=== PATIENT | female | born 2000 | race American Indian/Alaskan Native ===

== ENCOUNTER 2019-07-22 12:49 | Emergency (ER) | payer SELFPAY ==
[2019-07-22 14:58] LABS: Bilirubin,Urine NEG (Negative); Blood,Urine LG (Negative); Color,Urine Yellow (Yellow); Mucus,Urine 1+ /HPF; Protein,Urine <15 mg/dL mg/dL (Negative); Urobilinogen,Urine < 2.0 mg/dL (<2.0)
[2019-07-22 15:12] LABS: Basophils % (Auto) 0.3 % (0.0-1.8); Eosinophils # (Auto) 0.1 K/mm3 (0.0-0.4); Eosinophils % (Auto) 1.2 % (0.0-4.3); Hematocrit 37.8 % (30.3-42.9); Hemoglobin 12.8 gm/dl (10.1-14.3); Lymphocytes # (Auto) 2.2 K/mm3 (1.2-5.4); Lymphocytes % (Auto) 29.3 % (13.4-35.0); Mean Corpuscular HGB Conc 34 % (30-34); Mean Corpuscular Volume 95 fl (79-97); Monocytes # (Auto) 0.5 K/mm3 (0.0-0.8); Platelet Count 479 K/mm3 (140-440); Red Blood Count 3.99 M/mm3 (3.65-5.03); Red Cell Distribution Width 14.1 % (13.2-15.2)
[2019-07-22 15:20] LABS: BUN/Creatinine Ratio 13; Blood Urea Nitrogen 9 mg/dL (7-17); Calcium 10.4 mg/dL (8.4-10.2); Hemolysis Index 2
--- NOTE | 2019-07-22 15:27 | Emergency Department Report ---
ED Female HPI - General Chief complaint: Vaginal Bleeding Stated complaint: STOMACH,VOMITTING,BLEEDING PAIN Time Seen by Provider: 07/22/19 14:37 Source: patient Mode of arrival: Ambulatory Limitations: No Limitations - History of Present Illness Initial comments: This is a 18-year-old female who presents the ED complaining of vaginal bleeding that started yesterday. Patient states that when she wiped after using the restroom she saw some blood on the tissue. Patient states the bleeding stopped today so she is unsure what is going on. She states last menstrual period was 07/07/2019. Patient also admits a little bit of lower abdominal cramping. Patient denies fever/chills/nausea vomiting/dysuria/contraceptive use. MD Complaint: vaginal bleeding - Related Data Allergies Allergy/AdvReac Type Severity Reaction Status Date / Time No Known Allergies Allergy Unverified 07/22/19 12:52 ED Review of Systems ROS: Stated complaint: STOMACH,VOMITTING,BLEEDING PAIN Other details as noted in HPI Comment: All other systems reviewed and negative ED Past Medical Hx - Past Medical History Previous Medical History?: No - Surgical History Past Surgical History?: No ED Physical Exam - General Limitations: No Limitations General appearance: alert, in no apparent distress - Head Head exam: Present: atraumatic, normocephalic - Eye Eye exam: Present: normal appearance - ENT ENT exam: Present: mucous membranes moist - Neck Neck exam: Present: normal inspection - Respiratory Respiratory exam: Present: normal lung sounds bilaterally. Absent: respiratory distress - Cardiovascular Cardiovascular Exam: Present: regular rate, normal rhythm. Absent: systolic murmur, diastolic murmur, rubs, gallop - GI/Abdominal GI/Abdominal exam: Present: soft, normal bowel sounds. Absent: distended, tenderness, guarding, mass - Extremities Exam Extremities exam: Present: normal inspection - Back Exam Back exam: Present: normal inspection - Neurological Exam Neurological exam: Present: alert, oriented X3 - Psychiatric Psychiatric exam: Present: normal affect, normal mood - Skin Skin exam: Present: warm, dry, intact, normal color. Absent: rash ED Medical Decision Making - Lab Data Result diagrams: 07/22/19 14:50 07/22/19 15:00 Laboratory Last Values WBC 7.6 K/mm3 (4.5-11.0) 07/22/19 14:50 RBC 3.99 M/mm3 (3.65-5.03) 07/22/19 14:50 Hgb 12.8 gm/dl (10.1-14.3) 07/22/19 14:50 Hct 37.8 % (30.3-42.9) 07/22/19 14:50 MCV 95 fl (79-97) 07/22/19 14:50 MCH 32 pg (28-32) 07/22/19 14:50 MCHC 34 % (30-34) 07/22/19 14:50 RDW 14.1 % (13.2-15.2) 07/22/19 14:50 Plt Count 479 K/mm3 (140-440) H 07/22/19 14:50 Lymph % (Auto) 29.3 % (13.4-35.0) 07/22/19 14:50 [place] % (Auto) 7.0 % (0.0-7.3) 07/22/19 14:50 Eos % (Auto) 1.2 % (0.0-4.3) 07/22/19 14:50 Baso % (Auto) 0.3 % (0.0-1.8) 07/22/19 14:50 Lymph # 2.2 K/mm3 (1.2-5.4) 07/22/19 14:50 [place] # 0.5 K/mm3 (0.0-0.8) 07/22/19 14:50 Eos # 0.1 K/mm3 (0.0-0.4) 07/22/19 14:50 Baso # 0.0 K/mm3 (0.0-0.1) 07/22/19 14:50 Seg Neutrophils % 62.2 % (40.0-70.0) 07/22/19 14:50 Seg Neutrophils # 4.7 K/mm3 (1.8-7.7) 07/22/19 14:50 Sodium 139 mmol/L (137-145) 07/22/19 15:00 Potassium 4.9 mmol/L (3.6-5.0) 07/22/19 15:00 Chloride 103.5 mmol/L (98-107) 07/22/19 15:00 Carbon Dioxide 23 mmol/L (22-30) 07/22/19 15:00 Anion Gap 17 mmol/L 07/22/19 15:00 BUN 9 mg/dL (7-17) 07/22/19 15:00 Creatinine 0.7 mg/dL (0.7-1.2) 07/22/19 15:00 Estimated GFR > 60 ml/min 07/22/19 15:00 BUN/Creatinine Ratio 13 % 07/22/19 15:00 Glucose 94 mg/dL (65-100) 07/22/19 15:00 Calcium 10.4 mg/dL (8.4-10.2) H 07/22/19 15:00 HCG, Quant < 2 mIU/mL (0-4) 07/22/19 14:50 Urine Color Yellow (Yellow) 07/22/19 14:36 Urine Turbidity Clear (Clear) 07/22/19 14:36 Urine pH 5.0 (5.0-7.0) 07/22/19 14:36 Ur Specific [place] 1.020 (1.003-1.030) 07/22/19 14:36 Urine Protein <15 mg/dl mg/dL (Negative) 07/22/19 14:36 Urine Glucose (UA) Neg mg/dL (Negative) 07/22/19 14:36 Urine Ketones Neg mg/dL (Negative) 07/22/19 14:36 Urine Blood Lg (Negative) 07/22/19 14:36 Urine Nitrite Neg (Negative) 07/22/19 14:36 Urine Bilirubin Neg (Negative) 07/22/19 14:36 Urine Urobilinogen < 2.0 mg/dL (<2.0) 07/22/19 14:36 Ur Leukocyte Esterase Neg (Negative) 07/22/19 14:36 Urine WBC (Auto) 1.0 /HPF (0.0-6.0) 07/22/19 14:36 Urine RBC (Auto) 10.0 /HPF (0.0-6.0) 07/22/19 14:36 U Epithel Cells (Auto) 1.0 /HPF (0-13.0) 07/22/19 14:36 Urine Mucus 1+ /HPF 07/22/19 14:36 Blood Type O POSITIVE 07/22/19 14:50 - Medical Decision Making This is a 18-year-old female presents with intermenstrual bleeding. All labs are within normal limits, test negative urinalysis negative. I discussed all findings with the patient. Discussed with patient to follow-up with primary care physician. Referrals for NUMEROLOGIST given for patient to follow-up. Vital signs are normal patient is in no acute distress. Critical care attestation.: If time is entered above; I have spent that time in minutes in the direct care of this critically ill patient, excluding procedure time. ED Disposition Clinical Impression: Irregular menstrual bleeding, Intermenstrual spotting Disposition: TO HOME OR SELFCARE Is pt being admited?: No Does the pt Need Aspirin: No Condition: Stable Instructions: Dysmenorrhea (ED) Additional Instructions: Make sure to follow up with the primary care physician as discussed. . If you have any worsening symptoms or develop new symptoms please return to ED immediately. Referrals: [facility] [Provider Group] - 3-[address] [facility] [Outside] - 3-5 Days Forms: Accompanied Note, Work/School Release Form(ED) Time of Disposition: 15:28
[2019-07-22 15:41] VITALS: BP 137/79
== END 2019-07-22 15:52 | disposition home or self-care (01) ==
LOC: ED 12:49
DX: N92.1 Excessive and frequent menstruation with irregular cycle (principal); N92.5 Other specified irregular menstruation
CPT/HCPCS: 36415; 80048; 81001; 84702; 85025; 86900; 86901

== ENCOUNTER 2019-08-04 04:21 | Emergency (ER) | payer SELFPAY ==
--- NOTE | 2019-08-04 05:42 | Emergency Department Report ---
ED Female HPI - General Stated complaint: PINK DISCHARGE FOR COUPLE OF DAYS Time Seen by Provider: 08/04/19 05:21 Source: patient Mode of arrival: Ambulatory Limitations: No Limitations - History of Present Illness Initial comments: Patient is a 18-year-old female presents emergency room with complaints of light vaginal spotting that began 2 days ago. She states that she just notices the light spotting whenever she wipes. She denies any abdominal pain, nausea, vomiting, diarrhea, fever. She states that her last menstrual cycle was 07/04/2019. She denies any past medical history. She denies any allergies to medications. She states that she has never been before. Patient presents emergency room with concerned that she is and having spotting but she could possibly just be having her menstrual cycle. - Related Data Allergies Allergy/AdvReac Type Severity Reaction Status Date / Time No Known Allergies Allergy Unverified 07/22/19 12:52 ED Review of Systems ROS: Stated complaint: PINK DISCHARGE FOR COUPLE OF DAYS Other details as noted in HPI Comment: All other systems reviewed and negative ED Physical Exam - General Limitations: No Limitations General appearance: alert, in no apparent distress - Head Head exam: Present: atraumatic, normocephalic - Eye Eye exam: Present: normal appearance - ENT ENT exam: Present: mucous membranes moist - Respiratory Respiratory exam: Present: normal lung sounds bilaterally. Absent: respiratory distress, wheezes, rales, rhonchi, stridor, chest wall tenderness, accessory muscle use, decreased breath sounds, prolonged expiratory - Cardiovascular Cardiovascular Exam: Present: regular rate, normal rhythm, normal heart sounds. Absent: systolic murmur, diastolic murmur, rubs, gallop - GI/Abdominal GI/Abdominal exam: Present: soft, normal bowel sounds. Absent: distended, tenderness, guarding, rebound, rigid - Neurological Exam Neurological exam: Present: alert, oriented X3 - Psychiatric Psychiatric exam: Present: normal affect, normal mood - Skin Skin exam: Present: warm, dry, intact ED Course Vital Signs 08/04/19 08/04/19 05:06 06:54 Temperature 98.0 F 98.2 F Pulse Rate 84 76 Respiratory 18 18 Rate Blood Pressure 129/75 Blood Pressure 120/76 [Left] O2 Sat by Pulse 99 100 Oximetry ED Medical Decision Making - Medical Decision Making Patient is a 18-year-old female presents emergency room with complaints of light vaginal spotting that began 2 days ago. She states that she just notices the light spotting whenever she wipes. She denies any abdominal pain, nausea, vomiting, diarrhea, fever. She states that her last menstrual cycle was 07/04/2019. She denies any past medical history. She denies any allergies to medications. She states that she has never been before. Patient presents emergency room with concerned that she is and having spotting but she could possibly just be having her menstrual cycle. Vitals are normal. No abdominal tenderness on exam, no guarding, no rebound, no rigidity, no peritoneal signs. hCG quant is less than 2. UA is within normal limits. Spo tting could be due to the onset of her menses as it is time for her menstrual cycle. Will have patient follow-up with an [facility]. advised pt Follow-up with the TRANSLITERATOR. Return to the emergency room for any new or worsening symptoms. - Differential Diagnosis Menstruation, IUP, ectopic, metromenorrhagia, AUB Critical care attestation.: If time is entered above; I have spent that time in minutes in the direct care of this critically ill patient, excluding procedure time. ED Disposition Clinical Impression: Vaginal spotting, Menstruation Disposition: - TO HOME OR SELFCARE Is pt being admited?: No Does the pt Need Aspirin: No Condition: Stable Instructions: Menstruation (ED) Additional Instructions: Follow-up with the TRANSLITERATOR. Return to the emergency room for any new or worsening symptoms. Referrals: [facility] [Provider Group] - 3-5 Days [facility] [Provider Group] - 3-5 Days [facility] [Provider Group] - 3-5 Days Time of Disposition: 06:46 Print Language: PERSIAN
[2019-08-04 06:03] LABS: Bilirubin,Urine NEG (Negative); Blood,Urine NEG (Negative); Color,Urine Yellow (Yellow); Mucus,Urine FEW /HPF; Protein,Urine <15 mg/dL mg/dL (Negative); Urobilinogen,Urine < 2.0 mg/dL (<2.0)
[2019-08-04 06:55] VITALS: BP 120/76
== END 2019-08-04 06:55 | disposition home or self-care (01) ==
LOC: ED 04:21
DX: N93.9 Abnormal uterine and vaginal bleeding, unspecified (principal); N92.6 Irregular menstruation, unspecified
CPT/HCPCS: 36415; 81001; 84702; 86900; 86901; 99283